=== PATIENT | female | born 1975 ===

== ENCOUNTER 2017-11-12 08:16 | Emergency (ER) | payer OTHER ==
[2017-11-12 08:24] VITALS: BMI 30.8
[2017-11-12] MEDS ORDERED: Albuterol 0.083% Inhal Sol (2.5 mg/3 mL) UD IH STA (08:48)
[2017-11-12] MEDS ORDERED: Promethazine/Cod 6.25mg-10mg/5ml Syr UD PO STA (08:49)
--- NOTE | 2017-11-12 09:16 | C.PDOC ---
History Of Present Illness 42 y/o female presents to ED with c/o of dry cough, subjective fever, and body aches for 3days. Patient states she has tried home remedies, OTC cough medicine and Aleve with no improvement, last taken last night. Patient admits to sick contact () with the same symptoms. Denies recent travel, chest pain, nausea, vomiting, sob, back pain or any other complaints at this time. Time Seen by Provider: 11/12/17 08:31 Chief Complaint (Nursing): Flu-like Symptoms History Per: Patient History/Exam Limitations: no limitations Onset/Duration Of Symptoms: Days Current Symptoms Are (Timing): Still Present Past Medical History Reviewed: Historical Data, Nursing Documentation, Vital Signs Vital Signs: Last Vital Signs Temp 99.0 F 11/12/17 10:36 Pulse 68 11/12/17 10:36 Resp 20 11/12/17 10:36 BP 93/62 L 11/12/17 10:36 Pulse Ox 96 11/12/17 10:57 Surgical History: Appendectomy, Family History: States: No Known Family Hx - Social History Hx Alcohol Use: Yes Hx Substance Use: No - Immunization History Hx Tetanus Toxoid Vaccination: No Hx Influenza Vaccination: No Hx Pneumococcal Vaccination: No Review Of Systems Constitutional: Positive for: Fever Cardiovascular: Negative for: Chest Pain Respiratory: Positive for: Cough. Negative for: Shortness of Breath Gastrointestinal: Negative for: Nausea, Vomiting Musculoskeletal: Positive for: Other (Generalized body ache) Skin: Negative for: Rash Physical Exam - Physical Exam Appears: Non-toxic, No Acute Distress, Other (persistent dry coughing) Skin: Warm, Dry, No Rash Head: Atraumatic, Normacephalic Eye(s): bilateral: Normal Inspection, EOMI Ear(s): Bilateral: Normal Nose: Normal Oral Mucosa: Moist Throat: Normal, No Erythema, No Exudate Neck: Normal ROM, Supple Chest: Symmetrical Cardiovascular: Rhythm Regular Respiratory: Normal Breath Sounds, No Accessory Muscle Use, No Rales, No Rhonchi , No Wheezing Gastrointestinal/Abdominal: Soft, No Tenderness, No Guarding, No Rebound Extremity: Normal ROM Neurological/Psych: Oriented x3, Normal Speech, Normal Cognition ED Course And Treatment O2 Sat by Pulse Oximetry: 96 (RA) Pulse Ox Interpretation: Normal - Other Rad CXR X-Ray: Viewed By Me, Read By Radiologist Interpretation: HISTORY: uri. COMPARISON: No prior. TECHNIQUE: Chest PA and lateral. FINDINGS: LUNGS: Right lower lobe infiltrate. PLEURA: No significant pleural effusion identified. No pneumothorax apparent. CARDIOVASCULAR: Normal. OSSEOUS STRUCTURES: No significant abnormalities. VISUALIZED UPPER ABDOMEN: Normal. OTHER FINDINGS: None. IMPRESSION: Right lower lobe infiltrate. Suspect pneumonia. Otherwise unremarkable. Progress Note: CXR ordered. Ibuprofen, Promethazine and Neb treatment adminsitered. On re evaluation patient feels better. Cough resolved. Denies sob or chest pain. Remains afebrile. Pt instructed to follow up with PMD in 1-2 days. Disposition - Disposition Referrals: [facility] at [facility] [Outside] Disposition: HOME/ ROUTINE Disposition Time: 10:03 Condition: STABLE Additional Instructions: Follow up with PMD in 1-2 days. Return to ER if symptoms persist or worsen. Prescriptions: Albuterol Sulfate [Ventolin Hfa] 2 puff IH Q6 PRN #1 ml PRN Reason: Cough And Congestion Azithromycin [Zithromax] 250 mg PO DAILY #6 tab Benzonatate [Tessalon Perle] 100 mg PO TID PRN #15 capsule PRN Reason: Cough Instructions: Acute Bronchitis, Adult (DC) Forms: [employer] ([place]ian) - Clinical Impression Clinical Impression: Bronchitis, Pneumonia - PA / PROFESSIONAL APPLICATION DESIGNER / Resident Statement MD/DO has reviewed & agrees with the documentation as recorded. - Scribe Statement The provider has reviewed the documentation as recorded by the Rosa Mcgee All medical record entries made by the Joanaibnona were at my direction and personally dictated by me. I have reviewed the chart and agree that the record accurately reflects my personal performance of the history, physical exam, medical decision making, and the department course for this patient. I have also personally directed, reviewed, and agree with the discharge instructions and disposition.
[2017-11-12] MEDS ORDERED: Promethazine DM 6.25 mg-15 mg/5 ml Syrup ONE (09:17)
--- NOTE | 2017-11-12 10:16 | RAD ---
HISTORY: uri COMPARISON: No prior. TECHNIQUE: Chest PA and lateral FINDINGS: LUNGS: Right lower lobe infiltrate. PLEURA: No significant pleural effusion identified. No pneumothorax apparent. CARDIOVASCULAR: Normal. OSSEOUS STRUCTURES: No significant abnormalities. VISUALIZED UPPER ABDOMEN: Normal. OTHER FINDINGS: None. IMPRESSION: Right lower lobe infiltrate. Suspect pneumonia. Otherwise unremarkable.
[2017-11-12 10:36] VITALS: BP 93/62; PULSE 68; RESP 20; TEMP 99
[2017-11-12 10:57] VITALS: O2SAT 96
== END 2017-11-12 10:42 | disposition home or self-care (01) ==
LOC: C.ER 08:16
DX: J18.9 Pneumonia, unspecified organism (principal); J40 Bronchitis, not specified as acute or chronic